=== PATIENT | female | born 1995 | race Caucasian/White ===

== ENCOUNTER 2022-05-13 21:34 | Emergency (ER) | payer OTHER ==
[2022-05-13 22:00] VITALS: BP 110/69; PULSE 66; RESP 16; TEMP 99.2; BMI 24.3
[2022-05-13] MEDS ORDERED: KETOROLAC TROMETHAMINE 60 MG/2 ML VIAL IM ONE (22:08)
[2022-05-13] MEDS ORDERED: KETOROLAC TROMETHAMINE 60 MG/2 ML VIAL ONE (22:09)
== END 2022-05-13 23:17 | disposition home or self-care (01) ==
LOC: FER 21:34
PROC: 3E0233Z Introduction of Anti-inflammatory into Muscle, Percutaneous Approach (ICD-10-PCS; principal; 2022-05-13)
DX: M54.50 Low back pain, unspecified (principal); S30.0XXA Contusion of lower back and pelvis, initial encounter; W19.XXXA Unspecified fall, initial encounter; Y92.9 Unspecified place or not applicable
CPT/HCPCS: 72100-TC-FY; 81025; 99284-25